=== PATIENT | female | born 1945 | race African-American/Black ===

== ENCOUNTER 2022-10-15 19:57 | Emergency (ER) | payer OTHER ==
[2022-10-15 20:04] VITALS: BP 128/78; PULSE 79; RESP 17; TEMP 98.9; BMI 19.3
[2022-10-15] MEDS ORDERED: DIPHTH,PERTUSS(ACELL),TET 0.5 ML DISP.SYRIN IM ONE ×2 (23:07→23:32)
[2022-10-15] MEDS ORDERED: ACETAMINOPHEN 325 MG TABLET (FP) PO ONE (23:56)
[2022-10-15] MEDS ORDERED: ACETAMINOPHEN 325 MG TABLET (FP) ONE (23:59)
== END 2022-10-16 00:13 | disposition home or self-care (01) ==
LOC: JER 19:57
PROC: 3E0234Z Introduction of Serum, Toxoid and Vaccine into Muscle, Percutaneous Approach (ICD-10-PCS; principal; 2022-10-15)
DX: S00.83XA Contusion of other part of head, initial encounter (principal); M54.2 Cervicalgia; W01.0XXA Fall on same level from slipping, tripping and stumbling without subsequent striking against object, initial encounter
CPT/HCPCS: 70450-TC; 70486-TC; 72125-TC; 90471; 90715; 99284-25